=== PATIENT | male | born 1985 | race Caucasian/White ===

== ENCOUNTER 2022-01-28 17:15 | Emergency (ER) | payer BC ==
[2022-01-28] MEDS ORDERED: Tenecteplase 50 MG Kit IV ONE (17:36)
[2022-01-28] MEDS ORDERED: Sodium Chloride 0.9% 10 ML Syringe FLUSH PRN (17:36)
[2022-01-28] MEDS ORDERED: Aspirin 81 MG Tab.Chew PO ONE (17:36)
[2022-01-28] MEDS ORDERED: Heparin Sodium 5,000 Units/ML Vial IVPUSH ONE (17:37)
[2022-01-28] MEDS ORDERED: Ondansetron 4 MG/2 ML SDV ONE (17:44)
[2022-01-28] MEDS ORDERED: Heparin Sodium/D5W 25,000 UNITS/500 ML BAG IV SCH (17:45)
[2022-01-28] MEDS ORDERED: Ondansetron 4 MG/2 ML SDV IVPUSH ONE (17:50)
[2022-01-28] MEDS ORDERED: Morphine 2 MG/ML SYRINGE IVPUSH ONE (18:09)
[2022-01-28] MEDS ORDERED: Morphine 2 MG/ML SYRINGE ONE (18:10)
== END 2022-01-28 19:01 ==
LOC: JD.ED 17:15
DX: I21.29 ST elevation (STEMI) myocardial infarction involving other sites (principal); I10 Essential (primary) hypertension; Z20.822 Contact with and (suspected) exposure to COVID-19
CPT/HCPCS: 36415; 71045; 80053; 80306; 84484; 85025; 87635; 93005; 96365; 96375; 99285; A9270; J1644; J2270; J2405; J3101; J3490; 93010; U0002